=== PATIENT | female | born 1960 | race African-American/Black ===

== ENCOUNTER 2021-12-27 02:22 | Emergency (ER) | payer OTHER ==
[~2021-12-27] VITALS: Ht 177.8 cm; Wt 85.7 kg
--- NOTE | ~2021-12-27 | EMS ---
[address] [address] EMS Patient Care Report Name: NICK MARTINEZ Room #: DEP CAROLA Cadena#: [id number] Admission: 12/27/21 Attend Phys: Discharge: 12/27/21 Date of : 64 Report #: [id number] THIS REPORT FOR: //name// Report Transmitted: 12/30/2021 16:20 EMS Care Summary [place], [place]/[facility] Incident [id number] @ 12/27/2021 02:00 Incident Location [address] [place] [address] Patient NICK MARTINEZ Female, 61 Years 1960 Patient Address HOMELESS Patient History None Reported, Patient Allergies Aspirin, Patient Medications None Reported, Chief Complaint EPIGASTRIC PAIN Disposition Transported No Lights/[place] Dispatch Reason Chest Pain (Non-Traumatic) Transported To [facility] Narrative ARRIVED TO FIND PT SITTING IN A CHAIR. PT REPORTS EPIGASTRIC PAIN FOR 2 HOURS. PT ASSISTED TO COT, SECURED WITH STRAPS X2, LOADED WITHOUT INCIDENT. ALS ASSESSMENT VITALS OBTAINED. ENROUTE, PT CONDITION UNCHANGED. [address] [address] EMS Patient Care Report Name: NICK MARTINEZ Room #: DEP Surinder#: [id number] Admission: 12/27/21 Attend Phys: Discharge: 12/27/21 Date of : 64 Report #: [id number] ARRIVED. PT TAKEN INSIDE ON COT TO ER Initial Vitals @02:11P: 90,R: 20,BP: 170/105,Pain: 6/10,GCS: 15,CO: 1,SpO2: 99,Revised Trauma: 12, @02:17P: 86,R: 20,BP: 153/109,Pain: 6/10,GCS: 15,CO: 3,SpO2: 98,Revised Trauma: 12, Assessments @02:14MENTAL:Time Oriented,Event Oriented,Place Oriented,Person Oriented,SKIN:HEENT:Head/Face: No Abnormalities,Eyes: No Abnormalities,Neck/Airway: No Abnormalities,LUNG SOUNDS:Right Upper: Tenderness,Left Upper: Tenderness,Left Lower: No Abnormalities,Right Lower: No Abnormalities,ABDOMEN:Right Upper: Tenderness,Left Upper: Tenderness,Left Lower: No Abnormalities,Right Lower: No Abnormalities,PELVIS//GI:No Abnormalities,EXTREMITIES:Left Arm: No Abnormalities,Right Arm: No Abnormalities,Left Leg: No Abnormalities,Right Leg: No Abnormalities,PULSE:Radial: 2+ Normal,NEURO:No Abnormalities, Impression Abdominal Pain Procedures @02:14 ALS Assessment Response: UnchangedSucceeded Timeline 01:56,Call Received 01:56,Dispatch Notified 02:00,Dispatched 02:00,En Route 02:05,On Scene 02:06,At Patient 02:11,BP: 170/105 M,PULSE: 90,RR: 20 R,SPO2: 99 Ox,ETCO2: ,BG: ,PAIN: 6,GCS: 15, 02:12,Depart Scene 02:14,ALS Assessment,Response: UnchangedSucceeded, 02:17,BP: 153/109 M,PULSE: 86,RR: 20 R,SPO2: 98 Ox,ETCO2: ,BG: ,PAIN: 6,GCS: 15, 02:27,At Destination 02:35,Call Closed Disclaimer v1.1 Copyright 2021 [employer] This EMS Care Summary contains data elements from the applicable legal record [address] [address] EMS Patient Care Report Name: NICK MARTINEZ Room #: DEP Surinder#: [id number] Admission: 12/27/21 Attend Phys: Discharge: 12/27/21 Date of : 64 Report #: [id number] (which may be displayed differently). It is designed to provide pertinent information for the following purposes: continuity of care, clinical quality, and state data reporting. The complete legal record is available to ED staff and administrators of the receiving hospital in [employer]'s Patient Tracker. All data is provided "as is."
--- NOTE | ~2021-12-27 | EMS ---
[address] [address] EMS Patient Care Report Name: NICK MARTINEZ Room #: DEP CAROLA Cadena#: [id number] Admission: 12/27/21 Attend Phys: Discharge: 12/27/21 Date of : 64 Report #: [id number] THIS REPORT FOR: //name// Report Transmitted: 12/28/2021 13:27 EMS Care Summary [place], [place]/[facility] Incident [id number] @ 12/27/2021 02:00 Incident Location [address] [place] [id number] Patient NICK MARTINEZ Female, 61 Years 1960 Patient Address HOMELESS Patient History None Reported, Patient Allergies Aspirin, Patient Medications None Reported, Chief Complaint EPIGASTRIC PAIN Disposition Transported No Lights/[place] Dispatch Reason Chest Pain (Non-Traumatic) Transported To [facility] Narrative ARRIVED TO FIND PT SITTING IN A CHAIR. PT REPORTS EPIGASTRIC PAIN FOR 2 HOURS. PT ASSISTED TO COT, SECURED WITH STRAPS X2, LOADED WITHOUT INCIDENT. ALS ASSESSMENT VITALS OBTAINED. ENROUTE, PT CONDITION UNCHANGED. [address] [address] EMS Patient Care Report Name: NICK MARTINEZ Room #: DEP Surinder#: [id number] Admission: 12/27/21 Attend Phys: Discharge: 12/27/21 Date of : 64 Report #: [id number] ARRIVED. PT TAKEN INSIDE ON COT TO ER Initial Vitals @02:11P: 90,R: 20,BP: 170/105,Pain: 6/10,GCS: 15,CO: 1,SpO2: 99,Revised Trauma: 12, @02:17P: 86,R: 20,BP: 153/109,Pain: 6/10,GCS: 15,CO: 3,SpO2: 98,Revised Trauma: 12, Assessments @02:14MENTAL:Person Oriented,Place Oriented,Event Oriented,Time Oriented,SKIN:HEENT:Head/Face: No Abnormalities,Eyes: No Abnormalities,Neck/Airway: No Abnormalities,LUNG SOUNDS:Right Upper: Tenderness,Left Upper: Tenderness,Left Lower: No Abnormalities,Right Lower: No Abnormalities,ABDOMEN:Right Upper: Tenderness,Left Upper: Tenderness,Left Lower: No Abnormalities,Right Lower: No Abnormalities,PELVIS//GI:No Abnormalities,EXTREMITIES:Left Arm: No Abnormalities,Right Arm: No Abnormalities,Left Leg: No Abnormalities,Right Leg: No Abnormalities,PULSE:Radial: 2+ Normal,NEURO:No Abnormalities, Impression Abdominal Pain Procedures @02:14 ALS Assessment Response: UnchangedSucceeded Timeline 01:56,Call Received 01:56,Dispatch Notified 02:00,Dispatched 02:00,En Route 02:05,On Scene 02:06,At Patient 02:11,BP: 170/105 M,PULSE: 90,RR: 20 R,SPO2: 99 Ox,ETCO2: ,BG: ,PAIN: 6,GCS: 15, 02:12,Depart Scene 02:14,ALS Assessment,Response: UnchangedSucceeded, 02:17,BP: 153/109 M,PULSE: 86,RR: 20 R,SPO2: 98 Ox,ETCO2: ,BG: ,PAIN: 6,GCS: 15, 02:27,At Destination 02:35,Call Closed Disclaimer v1.1 Copyright 2021 [employer] This EMS Care Summary contains data elements from the applicable legal record [address] [address] EMS Patient Care Report Name: NICK MARTINEZ Room #: DEP Surinder#: [id number] Admission: 12/27/21 Attend Phys: Discharge: 12/27/21 Date of : 64 Report #: [id number] (which may be displayed differently). It is designed to provide pertinent information for the following purposes: continuity of care, clinical quality, and state data reporting. The complete legal record is available to ED staff and administrators of the receiving hospital in [employer]'s Patient Tracker. All data is provided "as is."
[2021-12-27 03:15] LABS: ABSOLUTE NEUTROPHILS 3.8 thou/uL (1.4-8.2); EOSINOPHILS 1.3 % (0.0-3.0); HEMATOCRIT 36.9 % (37.0-47.0); HEMOGLOBIN 11.8 gm/dL (12.0-15.0); LYMPHOCYTES 26.3 % (24.0-44.0); MCH 27.5 pg (26.0-34.0); MCHC 32.1 g/dL (28.0-37.0); MCV 85.8 fL (80.0-100.0); MONOCYTES 8.8 % (1.0-8.0); PLATELET COUNT 199 thou/uL (150-400); POLYS 62.6 % (36.0-66.0); RDW 14.6 % (10.5-14.5); WBC 6.1 thou/uL (4.0-11.0)
[2021-12-27 03:27] LABS: CALCIUM 9.1 mg/dL (8.5-10.1); CREATININE 1.4 mg/dL (0.6-1.0); POTASSIUM 3.5 mmol/L (3.5-5.1)
[2021-12-27 06:51] VITALS: BP 132/75
== END 2021-12-27 06:54 | disposition home or self-care (01) ==
LOC: ER 02:22
PROVIDERS: Student in an Organized Health Care Education/Training Program
DX: T69.9XXA Effect of reduced temperature, unspecified, initial encounter (principal); Z59.00 Homelessness unspecified; Z86.2 Personal history of diseases of the blood and blood-forming organs and certain disorders involving the immune mechanism; X31.XXXA Exposure to excessive natural cold, initial encounter; Y93.89 Activity, other specified; Y92.89 Other specified places as the place of occurrence of the external cause; Y99.8 Other external cause status